=== PATIENT | male | born 1975 | race Caucasian/White ===

== ENCOUNTER → 2020-07-25 | Day surgery (SDC) | payer OTHER ==
[~2020-07-25] MED LIST: CINNAMON PO; FISH OIL 1,0001 EAC5 PO; MILK THISTLE175 MG PO; VITAMIN C500 M4 PO; VITAMIN D250 MCG PO
== END | disposition home or self-care (01) ==
LOC: OR 06:23
PROVIDERS: Surgery
PROC: 0DJD8ZZ Inspection of Lower Intestinal Tract, Via Natural or Artificial Opening Endoscopic (ICD-10-PCS; principal; 2020-07-25 08:05)
DX: Z12.11 Encounter for screening for malignant neoplasm of colon (principal); K57.30 Diverticulosis of large intestine without perforation or abscess without bleeding; Z88.6 Allergy status to analgesic agent
CPT/HCPCS: J2704; J7030